=== PATIENT | female | born 1955 | race Caucasian/White ===

== ENCOUNTER 2017-07-10 12:33 | Day surgery (SDC) | payer OTHER ==
[2017-07-10] MEDS ORDERED: LIDOCAINE 2% (SDV) 5 ML INJ (13:23)
[2017-07-10] MEDS ORDERED: PROPOFOL 40 ML (13:23)
[2017-07-10] MEDS ORDERED: MIDAZOLAM 1 MG/ML 2 ML INJ (13:41)
== END 2017-07-10 17:45 | disposition home or self-care (01) ==
LOC: GIL 12:33
DX: Z12.11 Encounter for screening for malignant neoplasm of colon (principal); K57.30 Diverticulosis of large intestine without perforation or abscess without bleeding; K64.8 Other hemorrhoids; E78.5 Hyperlipidemia, unspecified; I10 Essential (primary) hypertension
CPT/HCPCS: 45378

== ENCOUNTER 2017-10-30 13:12 | Emergency (ER) | payer OTHER ==
[2017-10-30 15:20] LABS: ADD UMIC YES; UR ASCORBIC ACID NEGATIVE (NEGATIVE); UR BACTERIA FEW /HPF (NONE SEEN); UR BILIRUBIN (Dip) NEGATIVE (NEGATIVE); UR BLOOD (Dip) NEGATIVE (NEGATIVE); UR CLARITY CLEAR (CLEAR); UR COLOR YELLOW (YELLOW); UR GLUCOSE (Dip) NEGATIVE (NEGATIVE); UR KETONES (Dip) NEGATIVE (NEGATIVE); UR LEUKOCYTE ESTERASE (Dip) TRACE Leu/ul (NEGATIVE); UR MUCUS FEW /HPF (NONE SEEN); UR NITRITE (Dip) NEGATIVE (NEGATIVE); UR RBC 1 /HPF (0-5); UR SPECIFIC GRAVITY (Dip) 1.015 (1.003-1.030); UR TOTAL PROTEIN (Dip) NEGATIVE (NEGATIVE); UR UROBILINOGEN (Dip) NEGATIVE (NEGATIVE); UR WBC 12 /HPF (0-5)
[2017-10-30] MEDS: CEPHALEXIN 500 MG CAP PO (15:45)
== END 2017-10-30 16:33 | disposition home or self-care (01) ==
LOC: FTE 13:12
DX: M25.551 Pain in right hip (principal); M25.552 Pain in left hip; I10 Essential (primary) hypertension
CPT/HCPCS: 73510; 76830; 76856; 81001; 87086; 99285-25

== ENCOUNTER 2017-12-14 12:42 | Emergency (ER) | payer OTHER ==
[2017-12-14] MEDS: HYDROCODONE/APAP (5/325) TAB PO (13:35)
[2017-12-14] MEDS: IBUPROFEN 800 MG TAB PO (13:35)
== END 2017-12-14 15:13 | disposition home or self-care (01) ==
LOC: E/R 12:42
DX: S16.1XXA Strain of muscle, fascia and tendon at neck level, initial encounter (principal); I10 Essential (primary) hypertension; V43.62XA Car passenger injured in collision with other type car in traffic accident, initial encounter
CPT/HCPCS: 72125; 99284-25

== ENCOUNTER → 2017-12-27 17:38 | Emergency (ER) | payer OTHER ==
[2017-12-27] MEDS: LORAZEPAM 1 MG TAB PO (16:36)
[2017-12-27] MEDS: ACETAMINOPHEN 325 MG TAB PO (16:36)
== END | disposition home or self-care (01) ==
DX: M25.551 Pain in right hip (principal); I10 Essential (primary) hypertension
CPT/HCPCS: 73502; 73510; 99284-25

== ENCOUNTER 2018-07-02 11:02 | Emergency (ER) | payer OTHER ==
[2018-07-02] MEDS: HYDROCODONE/APAP (5/325) TAB PO (12:57)
[2018-07-02] MEDS: KETOROLAC 30 MG INJ IM (13:12)
== END 2018-07-02 14:25 | disposition home or self-care (01) ==
LOC: FTE 11:02
DX: S92.354A Nondisplaced fracture of fifth metatarsal bone, right foot, initial encounter for closed fracture (principal); S93.401A Sprain of unspecified ligament of right ankle, initial encounter; I10 Essential (primary) hypertension; W01.198A Fall on same level from slipping, tripping and stumbling with subsequent striking against other object, initial encounter; Y92.9 Unspecified place or not applicable
CPT/HCPCS: 73600; 73620; 96372; 99284-25

== ENCOUNTER 2018-07-10 11:21 | Emergency (ER) | payer OTHER ==
[2018-07-10] MEDS: HYDROCODONE/APAP (5/325) TAB PO (12:47)
== END 2018-07-10 13:52 | disposition home or self-care (01) ==
LOC: FTE 13:52
DX: S63.502A Unspecified sprain of left wrist, initial encounter (principal); I10 Essential (primary) hypertension; W18.30XA Fall on same level, unspecified, initial encounter; Y92.9 Unspecified place or not applicable
CPT/HCPCS: 29125; 73110-LT; 99283-25

== ENCOUNTER 2019-02-06 12:19 | Emergency (ER) | payer MEDICARE, OTHER | END 2019-02-06 15:21 | disposition home or self-care (01) | LOC: FTE 12:19 | DX: M25.521 Pain in right elbow (principal); M25.511 Pain in right shoulder | CPT/HCPCS: 71045; 73080-RT; 73562; 99284-25 ==